=== PATIENT | female | born 1955 | race Caucasian/White ===

== ENCOUNTER → 2017-08-09 15:14 | Outpatient (CLI) | payer MEDICAID ==
[2015-05-22 11:43] VITALS: BMI 23.7
[~2017-08-09 15:14] MED LIST: BENZONATATE200 MG PO; CLONAZEPAM2 MG/TAB PO; ENDOCET 10-3251 TAB PO; ESGIC TABLET1 TAB PO; FLUTICASONE PRO16 GM NASAL; IPRAT-ALBUT 0.5-3 ML UPD; LEVAQUIN250 MG PO; LEVAQUIN750 MG PO; LEVOTHROID100 MCG PO; NICODERM C1 PATCH .1 TRANSDERM; PREDNISONE20 MG PO; PROTONIX40 MG PO; SYMBICORT 16010.2 GM INH
== END | disposition home or self-care (01) ==
LOC: D.MAMMO 11:00
DX: Z12.31 Encounter for screening mammogram for malignant neoplasm of breast (principal)

== ENCOUNTER 2017-10-12 09:24 | Outpatient (CLI) | payer OTHER ==
[~2017-10-12] VITALS: Ht 175.3 cm; Wt 81.8 kg
[2017-10-12 10:01] VITALS: BP 131/75; Ht 175.3 cm; Wt 81.8 kg
== END 2017-10-12 11:10 | disposition home or self-care (01) ==
LOC: D.OPS 09:24
DX: M81.0 Age-related osteoporosis without current pathological fracture (principal)

== ENCOUNTER → 2017-12-01 08:30 | Outpatient (CLI) | payer OTHER ==
[2017-10-12 10:01] VITALS: BMI 26.6
== END | disposition home or self-care (01) ==
LOC: D.RT 08:30
DX: F17.200 Nicotine dependence, unspecified, uncomplicated (principal)

== ENCOUNTER 2019-07-18 09:00 | Outpatient (CLI) | payer OTHER ==
[2017-10-12 10:01] VITALS: BMI 26.6
== END 2019-07-18 10:00 | disposition home or self-care (01) ==
LOC: D.MAMMO 09:00
PROVIDERS: ATTEND Family Medicine
DX: Z12.31 Encounter for screening mammogram for malignant neoplasm of breast (principal)

== ENCOUNTER → 2019-09-17 08:37 | Outpatient (CLI) | payer OTHER ==
[2017-10-12 10:01] VITALS: BMI 26.6
== END | disposition home or self-care (01) ==
LOC: D.MRI 08:37
PROVIDERS: ATTEND Internal Medicine Gastroenterology
DX: R93.5 Abnormal findings on diagnostic imaging of other abdominal regions, including retroperitoneum (principal); R63.4 Abnormal weight loss; R11.0 Nausea

== ENCOUNTER 2019-10-09 05:37 | Day surgery (SDC) | payer OTHER ==
[~2019-10-09] VITALS: Ht 175.3 cm; Wt 58.5 kg
[~2019-10-09 05:37] MED LIST changes: +AMBIEN5 MG PO; +OXYCONTIN10 MG PO; +TIROSINT112 MCG PO; +TOPAMAX100 MG PO; +TRIAMTERENE-HC1 EAC3 PO; +ZANAFLEX4 MG PO; +ZOFRAN8 MG PO
[2019-10-09 05:58] LABS: BASOPHILS 0.5 % (0-2); EOSINOPHILS 2.2 % (0-7); HEMATOCRIT 43.4 % (36.0-48.0); HEMOGLOBIN 13.8 g/dL (12-16); LYMPHOCYTES 42.7 % (15-50); MCH 31.4 pg (26.0-34.0); MCHC 31.8 g/dL (31.0-37.0); MCV 98.9 fL (80.0-100.0); MEAN PLATELET VOLUME 10.3 fL (7.4-10.4); MONOCYTES 5.8 % (2-11); NEUTROPHILS 48.8 % (40-80); RBC 4.39 10x6/uL (4.00-5.40); RDW 13.3 % (11.5-14.5); WBC 7.4 10x3/uL (4.8-10.8)
[2019-10-09 06:06] LABS: PLATELET COUNT 309 10x3/uL (130-400)
[2019-10-09 06:26] LABS: CALCIUM 9.7 mg/dL (8.5-10.1); CARBON DIOXIDE 26.8 mmol/L (21.0-32.0); CREATININE - SERUM 0.9 mg/dL (0.6-1.3); POTASSIUM - SERUM 3.8 mmol/L (3.5-5.1)
[2019-10-09 06:58] VITALS: BP 101/57; Ht 175.3 cm; Wt 58.5 kg
--- NOTE | 2019-10-09 07:16 | NUR ---
SPOKE TO KHUSHBU IN ANESTHESIA REGARDING IV NOT ACCESSED. ANESTHESIA WILL START IN HOLDING.
--- NOTE | 2019-10-09 11:28 | NUR ---
SCOPE PATCH BEHIND LT EAR ON ADMIT TO RR
--- NOTE | 2019-10-09 11:36 | NUR ---
70CC OF RED DRAINAGE REMOVED FROM EDUARDA DRAIN @3033
--- NOTE | 2019-10-09 17:47 | OP ---
PATIENT NAME: SEAN GAYTAN MEDICAL RECORD: [id number] :55 LOCATION:[facility] ADMISSION DATE: SURGEON: ARISTIDES SANCHEZ MD DATE OF OPERATION: 10/09/2019 PREOPERATIVE DIAGNOSES: 1. Symptomatic gallstones. 2. Probable choledocholithiasis. 3. Nondiagnostic cholecystogram. 4. Hepatomegaly. POSTOPERATIVE DIAGNOSES: 1. Symptomatic gallstones. 2. Probable choledocholithiasis. 3. Nondiagnostic cholecystogram. 4. Hepatomegaly. PROCEDURE: 1. Laparoscopic cholecystectomy. 2. Intraoperative cholangiography without immediate surgeon interpretation. 3. A 14-gauge core liver biopsy. SURGEON: Aristides Sanchez MD GAMBRELER: None. BLOOD LOSS: Minimal. The risks, possible complications, and alternatives to the procedure were explained to the patient. She elects to proceed. OPERATIVE COURSE: The patient was conveyed to the operating room electively on 10/09/2019. General anesthesia was induced by the anesthesia staff. The abdomen was sterilely prepped and draped. A small skin favio was accomplished in the left upper quadrant. Veress needle was inserted through the skin favio into the peritoneal cavity. CO2 insufflation was begun. Once a sufficient pneumoperitoneum had been achieved, a 5-mm trocar was inserted through an incision in the right upper quadrant. Under direct internal vision utilizing television camera, a 12-mm trocar was inserted through an incision at the umbilicus. Another 5-mm trocar was inserted through an incision in the left upper quadrant. Another 5-mm trocar was inserted through an incision far laterally in the right upper quadrant. During insertion of the Veress needle and all trocars, there appeared to have been no injury to the bowels, any intraperitoneal or retroperitoneal structures. An abdominal survey was undertaken. There were some adhesions of the left upper quadrant. The gallbladder did not appear acutely inflamed. The liver was enlarged and that was the reason for the liver biopsy. Under laparoscopic guidance, I percutaneously accessed the right upper quadrant utilizing a 14-gauge core biopsy device. Cores were obtained over the convexity of the liver. The biopsy sites were made hemostatic with electrocautery. I then advanced a cholangiogram trocar. I punctured the fundus of the gallbladder. I aspirated bile. I then injected contrast. A cholecystogram was OPERATIVE REPORT [id number] SEAN GAYTAN performed. I felt that it was likely not diagnostic. I then aspirated bile and removed the cholangiogram trocar. The gallbladder was grasped and retracted cephalad. The infundibulum was grasped and retracted laterally. Blunt dissection was begun in the triangle of Calot. Two cystic arteries and one cystic duct were identified. These were clipped multiply and divided between clips. The gallbladder was then excised from its bed in the liver. It was placed within a bag retrieval device and was withdrawn through the umbilical fascial defect in several pieces. I had to enlarge the fascial defect in order to deliver the gallbladder and the gallstones. Additional loose gallstones were then scooped up with endoscopic retrieval bags. Balbir was added to the gallbladder fossa for additional hemostasis. A 10-mm drain was then advanced through the lateral most trocar. All trocars were removed and the abdomen desufflated. The lateral most site, where the drain was placed, was sutured to the skin with a 2-0 nylon. The fascia at the umbilicus was closed with multiple interrupted horizontal mattress 0 Vicryls. The skin at the umbilicus was closed with interrupted 4-0 Vicryl Rapide sutures. The other skin incisions were closed with interrupted intracuticular 3-0 Vicryls. Benzoin and Steri-Strips were applied. The patient was then extubated and conveyed to post-anesthesia care unit where she was in stable condition. TRANSINT:[id number] Voice Confirmation ID: [id number] DOCUMENT ID: [id number] ARISTIDES SANCHEZ MD at 1745 CC: ANTHONY MARTINEZ MD and LIYAH CAI DO [id number] DICTATION DATE: 10/09/191531 CEREAL MAKER: 10/09/19 1600 [facility] 10/09/19 [facility] [address] [id number]
== END 2019-10-09 14:00 | disposition home or self-care (01) ==
LOC: D.PAN 05:37 → D.OPS 08:00 → D.PAN 08:00 → D.OPS 09:00 → D.PAN 14:00
PROVIDERS: ATTEND Surgery
DX: K80.80 Other cholelithiasis without obstruction (principal); R16.0 Hepatomegaly, not elsewhere classified; J44.9 Chronic obstructive pulmonary disease, unspecified; Z72.0 Tobacco use; K21.9 Gastro-esophageal reflux disease without esophagitis; E05.90 Thyrotoxicosis, unspecified without thyrotoxic crisis or storm

== ENCOUNTER 2019-10-21 07:14 | Day surgery (SDC) | payer OTHER ==
[~2019-10-21] VITALS: Ht 175.3 cm; Wt 54.1 kg
[2019-10-21 07:31] LABS: BASOPHILS 0.4 % (0-2); EOSINOPHILS 1.3 % (0-7); HEMATOCRIT 44.1 % (36.0-48.0); HEMOGLOBIN 14.5 g/dL (12-16); IMMATURE GRANULOCYTES 0.3 % (0-5); LYMPHOCYTES 28.6 % (15-50); MCH 31.3 pg (26.0-34.0); MCHC 32.9 g/dL (31.0-37.0); MCV 95.2 fL (80.0-100.0); MEAN PLATELET VOLUME 10.1 fL (7.4-10.4); MONOCYTES 5.9 % (2-11); NEUTROPHILS 63.5 % (40-80); PLATELET COUNT 362 10x3/uL (130-400); RBC 4.63 10x6/uL (4.00-5.40); RDW 12.6 % (11.5-14.5); WBC 7.1 10x3/uL (4.8-10.8)
[2019-10-21 07:41] LABS: INR 0.93 (0.85-1.17); PROTIME 12.4 SECONDS (11.6-15.0)
[2019-10-21 07:47] LABS: ANION GAP 15.2 mmol/L (8-16); BILIRUBIN - TOTAL 0.3 mg/dL (0.2-1.3); CALCIUM 10.4 mg/dL (8.5-10.1); CARBON DIOXIDE 27.8 mmol/L (21.0-32.0); CREATININE - SERUM 1.2 mg/dL (0.6-1.3); PROTEIN - SERUM 7.9 g/dL (6.4-8.2)
[2019-10-21 07:55] VITALS: BP 117/61; Ht 175.3 cm; Wt 54.1 kg
--- NOTE | 2019-10-21 11:50 | NUR ---
1135 CHARMAINE JONES APPLIED FOR WARMTH.
--- NOTE | 2019-10-21 12:53 | NUR ---
7CC CONTRAST USED, 49 SEC FLURO TIME
--- NOTE | 2019-10-21 13:48 | NUR ---
GLUCAGON INJECTION GIVEN TO PT DURING PROCEDURE PER NIRANJAN REESE RN. WAS DOCUMENTED UNDER ANESTHESIA PAPERWORK.
--- NOTE | 2019-10-21 14:00 | NUR ---
DC INSTRUCTIONS GIVEN TO PT. STATES UNDERSTANDING. DC'D IV CATH FULLY INTACT. WILL CONTINUE TO MONITOR UNTIL DC.
--- NOTE | 2019-10-21 14:14 | NUR ---
PT LEFT UNIT VIA WC AT 1410
== END 2019-10-21 14:10 | disposition home or self-care (01) ==
LOC: D.OPS 07:14
PROVIDERS: ATTEND Internal Medicine Gastroenterology
DX: K80.50 Calculus of bile duct without cholangitis or cholecystitis without obstruction (principal); R63.4 Abnormal weight loss; R11.0 Nausea; R93.5 Abnormal findings on diagnostic imaging of other abdominal regions, including retroperitoneum

== ENCOUNTER 2020-11-24 15:00 | Outpatient (CLI) | payer OTHER ==
[2019-10-21 07:55] VITALS: BMI 17.6
== END 2020-11-24 23:59 | disposition home or self-care (01) ==
LOC: D.MAMMO 15:00
PROVIDERS: ATTEND Family Medicine
DX: Z12.31 Encounter for screening mammogram for malignant neoplasm of breast (principal)